=== PATIENT | male | born 1975 | race Caucasian/White ===

== ENCOUNTER 2017-06-10 19:24 | Emergency (ER) | payer OTHER ==
[~2017-06-10] VITALS: Ht 180.3 cm; Wt 97.5 kg
[~2017-06-10 19:24] MED LIST: ACULAR 0.5%3 ML OPH; CATAFLAM50 MG PO; ROBAXIN750 MG PO; TOBREX OPHTH S2.5 ML OPH; VICODIN 5/500 505 MG PO
[2017-06-10] MEDS ORDERED: CEFADROXIL500 M1 PO (20:41)
== END 2017-06-10 20:49 | disposition home or self-care (01) ==
LOC: ED 19:24
DX: S62.642B Nondisplaced fracture of proximal phalanx of right middle finger, initial encounter for open fracture (principal); F17.200 Nicotine dependence, unspecified, uncomplicated; Z98.890 Other specified postprocedural states; Z79.899 Other long term (current) drug therapy; W23.0XXA Caught, crushed, jammed, or pinched between moving objects, initial encounter; Y93.89 Activity, other specified; Y92.89 Other specified places as the place of occurrence of the external cause; Y99.9 Unspecified external cause status